=== PATIENT | female | born 1945 | race Caucasian/White ===

== ENCOUNTER 2016-04-08 14:11 | Emergency (ER) | payer OTHER ==
[~2016-04-08] VITALS: Ht 160 cm; Wt 97.2 kg
[~2016-04-08 14:11] MED LIST: ADULT LOW DOSE81 M1 PO; ALDACTAZIDE 251 EACH PO; AMARYL2 MG PO; AMBIEN10 M1 PO; AMBIEN10 MG PO; ASPIRIN; BACTRIM,SEPT1 TABLET PO; BENADRYL25 MG PO; BLOOD PRESSURE; BUMETANIDE1 M1 PO; CIPRO500 M1 PO; CLEOCIN300 MG PO; DOCUSATE SODIU100 MG PO; GLIMEPIRIDE1 MG PO; LANSOPRAZOLE30 MG PO; LISINOPRIL10 MG PO; MECLIZINE HCL12.5 M2 PO; PLAVIX75 MG PO; PROTONIX40 MG PO; SIMVASTATIN80 M1 G-TUBE; SIMVASTATIN80 M1 PO; SIMVASTATIN80 MG PO; SPIRONOLACT/HC1 EACH PO; ST. JOSEPH ASPI81 MG PO; SUGAR MED; TRAZODONE HCL50 MG PO; WATER PILL; ZESTRIL,PRINIVI20 MG PO; Zestril,Prinivil PO; Zocor PO
[2016-04-08] MEDS ORDERED: FLEXERIL10 MG PO (17:50)
[2016-04-08] MEDS ORDERED: TRAMADOL HCL50 MG PO (17:50)
[2016-04-08] MEDS ORDERED: NAPROSYN500 MG PO (17:50)
[2016-04-08 18:34] VITALS: BP 163/70
== END 2016-04-08 18:35 | disposition home or self-care (01) ==
LOC: EME 14:11
DX: S80.02XA Contusion of left knee, initial encounter (principal); S60.051A Contusion of right little finger without damage to nail, initial encounter; S16.1XXA Strain of muscle, fascia and tendon at neck level, initial encounter; V49.40XA Driver injured in collision with unspecified motor vehicles in traffic accident, initial encounter; E11.9 Type 2 diabetes mellitus without complications; I10 Essential (primary) hypertension; E78.00 Pure hypercholesterolemia, unspecified; Z79.82 Long term (current) use of aspirin
CPT/HCPCS: 72040; 73564; 99281; 99284